=== PATIENT | female | born 1955 | race Caucasian/White ===

== ENCOUNTER → 2017-01-11 | Outpatient (CLI) | payer MEDICARE | LOC: CT 01-10 09:30 | DX: R22.2 Localized swelling, mass and lump, trunk (principal); K76.89 Other specified diseases of liver | CPT/HCPCS: 36415; 71260; 82565; 84520; J7050; Q9962 ==

== ENCOUNTER 2020-12-09 10:53 | Observation (INO) | payer OTHER, SELFPAY ==
[~2020-12-09] VITALS: Ht 165.1 cm; Wt 80.4 kg
[~2020-12-09 10:53] MED LIST: AFRIN15 M1; CELEXA40 MG PO; ELIQUIS2.5 MG PO; K-DUR TAB 20 M20 MEQ PO; MEGA BIOTIN10000 MCG PO; NATURAL LAXATIVE PO; NORCO 5-325 TA1 EACH PO; NORVASC10 MG PO; OMEPRAZOLE20 MG PO; PERCOCET 10-321 EACH PO; SYNTHROID175 MCG PO; Voltaren Gel 1 % TOP
[2020-12-09 12:01] LABS: HEMOGLOBIN 16.8 gm/dl (12.3-15.3); RED BLOOD COUNT 5.43 M/UL (4.00-5.10); WHITE BLOOD COUNT 11.9 K/UL (4.5-11.0)
[2020-12-09 12:22] LABS: BUN/CREATININE RATIO 16 (0-10)
[2020-12-09] MEDS ORDERED: HYDROCODON-ACE1 EAC6 PO (13:22)
[2020-12-09] MEDS ORDERED: ABILIFY 2 MG TAB2 MG PO (13:23)
[2020-12-09] MEDS ORDERED: CHLORTHALIDONE25 MG PO (13:23)
[2020-12-09] MEDS ORDERED: DULOXETINE HCL60 MG PO (13:23)
[2020-12-09] MEDS ORDERED: NEURONTIN600 MG PO (13:24)
[2020-12-09] MEDS ORDERED: LEVOTHYROXINE150 MCG PO (13:24)
[2020-12-09] MEDS ORDERED: LIPITOR10 MG PO (13:25)
[2020-12-09] MEDS ORDERED: DIABETA 5 MG TAB5 MG PO (13:26)
[2020-12-09] MEDS ORDERED: TUMS200 MG PO (13:48)
[2020-12-09] MEDS ORDERED: SENNA8.6 MG PO (13:49)
[2020-12-10 04:04] LABS: HEMOGLOBIN 13.8 gm/dl (12.3-15.3); RED BLOOD COUNT 4.73 M/UL (4.00-5.10); WHITE BLOOD COUNT 9.2 K/UL (4.5-11.0)
[2020-12-10 04:28] LABS: BUN/CREATININE RATIO 22 (0-10)
[2020-12-10] MEDS ORDERED: METOPROLOL TART25 MG PO (09:40)
[2020-12-10] MEDS ORDERED: ELIQUIS 5 MG TAB5 MG PO (09:40)
[2020-12-10] MEDS ORDERED: MULTAQ 400 MG400 MG PO (09:40)
[2021-02-16] MEDS ORDERED: ABILIFY 2 MG TAB2 MG PO (09:28)
[2021-02-16] MEDS ORDERED: BUSPIRONE HCL10 MG PO (09:29)
[2021-02-16] MEDS ORDERED: STOOL SOFTENER100 M1 PO (09:31)
[2021-02-16] MEDS ORDERED: ISOSORBIDE DINI30 MG PO (09:31)
== END 2020-12-10 10:55 | disposition home or self-care (01) ==
LOC: ER1 10:53 → CDU 12:44 → PROG CARE 23:23
PROVIDERS: Emergency Medicine; ADMIT Family Medicine
DX: I48.91 Unspecified atrial fibrillation (principal); E03.9 Hypothyroidism, unspecified; I10 Essential (primary) hypertension; M19.90 Unspecified osteoarthritis, unspecified site; E11.9 Type 2 diabetes mellitus without complications; E78.5 Hyperlipidemia, unspecified; M79.7 Fibromyalgia; Z82.49 Family history of ischemic heart disease and other diseases of the circulatory system; Z88.6 Allergy status to analgesic agent; Z88.1 Allergy status to other antibiotic agents; Z88.0 Allergy status to penicillin; Z79.899 Other long term (current) drug therapy; Z86.73 Personal history of transient ischemic attack (TIA), and cerebral infarction without residual deficits; Z20.822 Contact with and (suspected) exposure to COVID-19
CPT/HCPCS: ECHO; 36415; 71045; 80048; 80053; 81001; 82550; 82553; 82962; 83874; 83880; 84439; 84443; 84484; 85025; 85027; 90471; 93005; 93306; 96365; 96372; 96375; 96376; 99285; G0378; U0002

== ENCOUNTER → 2021-01-21 | Outpatient (CLI) | payer OTHER ==
[~2021-01-21] MED LIST changes: +ABILIFY 2 MG TAB2 MG PO; +BUSPIRONE HCL10 MG PO; +CHLORTHALIDONE25 MG PO; +DIABETA 5 MG TAB5 MG PO; +DULOXETINE HCL60 MG PO; +ELIQUIS 5 MG TAB5 MG PO; +HYDROCODON-ACE1 EAC6 PO; +ISOSORBIDE DINI30 MG PO; +LEVOTHYROXINE150 MCG PO; +LIPITOR10 MG PO; +METOPROLOL TART25 MG PO; +MULTAQ 400 MG400 MG PO; +NEURONTIN600 MG PO; +SENNA8.6 MG PO; +STOOL SOFTENER100 M1 PO; +TUMS200 MG PO
== END ==
LOC: HEART 5 07:51
DX: I20.8 Other forms of angina pectoris (principal); R06.02 Shortness of breath; R94.39 Abnormal result of other cardiovascular function study
CPT/HCPCS: 78452; A9502; J2785

== ENCOUNTER → 2021-02-12 | Outpatient (CLI) | payer OTHER ==
[2021-02-12 10:01] LABS: HEMOGLOBIN 15.2 gm/dl (12.3-15.3); RED BLOOD COUNT 5.4 M/UL (4.00-5.10); WHITE BLOOD COUNT 9.4 K/UL (4.5-11.0)
[2021-02-12 10:29] LABS: BUN/CREATININE RATIO 16 (0-10)
== END ==
LOC: LAB 09:00
PROVIDERS: Internal Medicine Cardiovascular Disease
DX: R94.39 Abnormal result of other cardiovascular function study (principal); I10 Essential (primary) hypertension; I20.8 Other forms of angina pectoris; I48.91 Unspecified atrial fibrillation
CPT/HCPCS: 36415; 71046; 80048; 85025

== ENCOUNTER → 2021-02-16 | Outpatient (CLI) | payer OTHER | LOC: CATH 08:11 | DX: R94.39 Abnormal result of other cardiovascular function study (principal); I20.8 Other forms of angina pectoris; I48.91 Unspecified atrial fibrillation; I10 Essential (primary) hypertension; Z88.0 Allergy status to penicillin; Z88.8 Allergy status to other drugs, medicaments and biological substances; E11.9 Type 2 diabetes mellitus without complications | CPT/HCPCS: 82962; 99152; C1769; C1894; J1644; J2250; J3010; J7030; Q9967 ==

== ENCOUNTER → 2021-08-13 | Outpatient (CLI) | payer OTHER | LOC: RAD 10:34 | DX: M54.50 Low back pain, unspecified (principal); M47.816 Spondylosis without myelopathy or radiculopathy, lumbar region | CPT/HCPCS: 72100 ==

== ENCOUNTER 2022-06-03 11:14 | Emergency (ER) | payer OTHER ==
[2022-06-03 11:47] LABS: HEMOGLOBIN 14.8 gm/dl (12.3-15.3); RED BLOOD COUNT 4.81 M/UL (4.00-5.10); WHITE BLOOD COUNT 8.4 K/UL (4.5-11.0)
[2022-06-03 12:10] LABS: BUN/CREATININE RATIO 11 (0-10)
== END 2022-06-03 13:13 | disposition home or self-care (01) ==
LOC: ER1 11:14
PROVIDERS: Emergency Medicine
DX: M71.21 Synovial cyst of popliteal space [Baker], right knee (principal); I10 Essential (primary) hypertension; I48.91 Unspecified atrial fibrillation; E78.5 Hyperlipidemia, unspecified
CPT/HCPCS: 80053; 82550; 82553; 84484; 85025; 93971; 99284